=== PATIENT | male | born 1995 | race Caucasian/White ===

== ENCOUNTER 2021-05-17 01:00 | Emergency (ER) | payer SELFPAY ==
[2021-05-17 01:02] VITALS: BP 166/105; PULSE 97; RESP 18; TEMP 36.7; O2SAT 100
--- NOTE | 2021-05-17 01:07 | ED_ITS ---
HPI - Animal Bite General Chief Complaint: Animal Bite Stated Complaint: dog bite, right leg Time Seen by Provider: 05/17/21 01:01 History of Present Illness HPI narrative: 25-year-old male presents emergency room for evaluation of a dog bite to his right leg. Patient states he was bitten by a canine units dog. Patient complains of dog bites to his right knee and his right calf. Related Data Allergies Allergy/AdvReac Type Severity Reaction Status Date / Time Cephalosporins Allergy Mild Swelling Verified 05/12/16 11:33 Review of Systems Review of Systems: CONSTITUTIONAL: Denies fever, chills, or sweats. EYES: Denies visual changes, redness, or discharge. ENT: Denies rhinorrhea, congestion, sore throat, or otalgia. CARDIOVASCULAR: Denies chest pain, palpitations, or edema. RESPIRATORY: Denies cough or dyspnea. GASTROINTESTINAL: Denies abdominal pain, nausea, vomiting, or diarrhea. GENITOURINARY: Denies dysuria or hematuria. SKIN: Wounds to right leg MUSCULOSKELETAL: Denies back pain, joint pain, or myalgia. NEUROLOGIC: Denies headache, numbness, dizziness, or weakness. PSYCHIATRIC: Denies anxiety or depression. Exam Narrative: GENERAL: Well-appearing, well-nourished, and in no acute distress. HEAD: Normocephalic, atraumatic. EYES: PERRLA and EOMI. CHEST: Clear to auscultation. No respiratory distress. No wheezes rales or rhonchi HEART: Regular rate and rhythm. No murmur heard. Normal peripheral pulses. ABDOMEN: Soft, nontender, nondistended, normal active bowel sounds. EXTREMITIES: Normal range of motion. No edema. SKIN: 3 cm laceration to the right calf, puncture wound to the right medial thigh NEURO: No focal deficits. Alert and oriented x3. PSYCH: Normal mood and affect. Procedures Laceration Laceration 1: Date: 05/17/21 Time: 02:11 Site: lower extremity Side (If applicable): right Size (cm): 3 Description: linear and contaminated Depth: simple, single layer Local Anesthetic: lidocaine 1% and with epi Amount of anesthesia used (mL): 8 Pre-repair: irrigated extensively ====== Skin Level ====== Skin layer closed with: nylon Size (cm): 3-0 Number of sutures: 3 ====== Subcutaneous Layer ====== ====== Muscle Layer ====== ====== Tendon Layer ====== MDM - Animal Bite MDM Narrative Medical decision making narrative: 25-year-old male presents emergency room for evaluation of a dog bite to his right lower extremity. Dose of clindamycin was given in the emergency room. Both wounds were cleaned out and irrigated extensively. Retention sutures were placed to the 3 cm laceration to his right calf. Tetanus was updated. Differential Diagnosis Differential diagnosis: Likely bite by animal and dog bite Discharge Plan Discharge Clinical Impression: Bite by animal Dog bite Qualifiers: Encounter type: initial encounter Qualified Code(s): W54.0XXA - Bitten by dog, initial encounter Patient Disposition: Home, Self-Care Condition: Stable Instructions: Antibiotic Form Additional Instructions: Keep your wounds clean and dry. Stitches come out in 10 to 12 days. Take antibiotics as prescribed. Prescriptions: New clindamycin HCl 300 mg capsule 300 mg PO Q8H 10 Days Qty: 30 RF: 0 Follow-up/Referrals: PHYSICIAN,[employer]PER[employer] [Primary Care Provider] - Time of Disposition: 02:17
[2021-05-17] MEDS: TETANUS,DIPHTHERIA,AC PERTUSSIS ADULT (0.5 ML) BOOSTRIX IM (01:23)
[2021-05-17] MEDS: CLINDAMYCIN 600 MG/D5W 50 ML 600 MG/50 ML PIGGYBACK 100 MG IVPB (01:23)
== END 2021-05-17 02:48 | disposition home or self-care (01) ==
PROVIDERS: Emergency Provider Nurse Practitioner Family
DX: S81.851A Open bite, right lower leg, initial encounter (principal); W54.0XXA Bitten by dog, initial encounter; Z23 Encounter for immunization
CPT/HCPCS: 12002; 90471; 90715; 96365; 99284